=== PATIENT | female | born 1985 | race Caucasian/White ===

== ENCOUNTER 2019-09-02 13:01 | Emergency (ER) | payer OTHER ==
[~2019-09-02] VITALS: Ht 157.5 cm; Wt 56.7 kg
[2019-09-02 13:10] VITALS: BP 146/96
[2019-09-02] MEDS ORDERED: ALLEGRA-D 12 H1 EAC1 PO (13:16)
[2019-09-02] MEDS ORDERED: VALTREX 500 MG500 MG PO (13:28)
[2019-09-02] MEDS ORDERED: GABAPENTIN 100100 MG PO (13:28)
[2019-09-02] MEDS ORDERED: NORCO 5-325 TA1 EAC1 PO (13:28)
== END 2019-09-02 13:41 | disposition home or self-care (01) ==
LOC: M.ERS 13:01
DX: B02.9 Zoster without complications (principal); M54.2 Cervicalgia